=== PATIENT | male | born 1995 | race Caucasian/White ===

== ENCOUNTER 2022-02-16 14:37 | Emergency (ER) | payer BC ==
[~2022-02-16] VITALS: Ht 170.2 cm; Wt 93.0 kg
[2022-02-16 14:50] VITALS: BP 125/77
--- NOTE | 2022-02-16 16:01 | NUR ---
27 y/o male, c/o possible piece of [place] food in throat for 3 days. pt states he feels a piece of food stuck in his throat causing a "poking" sensation. denies nausea, vomiting, diarrhea. skin is pink/warm/dry. a&o x4 with even and steady gait. lungs clear bl, no rhonchi noted or difficulty with speech noted, heart rate even and regular. pt denies any fever, cp, sob, or cough at this time. vss. bed down. ermd made aware of pt. pmh: denies nka med: denies
[2022-02-16] MEDS ORDERED: IBUP-2213 PO (16:55)
[2022-02-16] MEDS ORDERED: BENZ-300 PO (16:55)
--- NOTE | 2022-02-16 17:07 | NUR ---
Patient discharged with v/s stable. Written and verbal after care instructions ABOUT SORE THROAT given and explained. Patient alert, oriented and verbalized understanding of instructions. Ambulatory with steady gait. All questions addressed prior to discharge. ID band removed. Patient advised to follow up with PMD. Rx of CEPACOL, MOTRIN given. Patient educated on indication of medication including possible reaction and side effects. Opportunity to ask questions provided and answered.
== END 2022-02-16 17:07 | disposition home or self-care (01) ==
LOC: MED 14:37
DX: T17.228A Food in pharynx causing other injury, initial encounter (principal); R07.0 Pain in throat; Z79.899 Other long term (current) drug therapy; X58.XXXA Exposure to other specified factors, initial encounter; Y93.89 Activity, other specified; Y92.89 Other specified places as the place of occurrence of the external cause; Y99.8 Other external cause status
CPT/HCPCS: 99283